=== PATIENT | female | born 1970 | race Caucasian/White ===

== ENCOUNTER → 2020-02-11 | Outpatient (CLI) | payer OTHER ==
[~2020-02-11] MED LIST: AMOX500 PO; ERGO50000 PO; ESZO3 PO; HYDACE5 PO; MULVITA PO; NEBI5 PO; OMEP20ER PO; OMEP40CA12 PO; OXYACE5T PO; PROG100 PO
[2020-02-11 18:01] LABS: BASOPHILS ABSOLUTE AUTO 0.09 K/mm3 (0.00-0.23); BASOPHILS PERCENT AUTO 2 % (0-2); EOSINOPHILS ABSOLUTE AUTO 0.35 K/mm3 (0.00-0.68); EOSINOPHILS PERCENT AUTO 6 % (0-6); Hematocrit 41.1 % (33.0-51.0); Hemoglobin 14.1 g/dL (11.5-16.0); IMMATURE GRAN ABSOLUTE AUTO 0.01 K/mm3 (0.00-0.10); IMMATURE GRAN PERCENT AUTO 0 % (0-1); LYMPHOCYTES ABSOLUTE AUTO 2.52 K/mm3 (0.84-5.20); LYMPHOCYTES PERCENT AUTO 42 % (21-46); MONOCYTES ABSOLUTE AUTO 0.48 K/mm3 (0.16-1.47); MONOCYTES PERCENT AUTO 8 % (4-13); Mean Corpuscular HGB 30.1 pg (26.0-34.0); Mean Corpuscular HGB Conc 34.3 g/dL (31.5-36.5); Mean Corpuscular Volume 88 fL (80-100); Mean Platelet Volume 10.8 fL (9.1-12.4); NEUTROPHILS PERCENT AUTO 43 % (41-73); Platelet Count 326 K/mm3 (150-400); RDW Coefficient Variation 12.8 % (11.7-14.2); RDW Standard Deviation 40.5 fL (35.1-46.3); Red Blood Cell Count 4.69 M/mm3 (3.80-5.20); White Blood Cell Count 6.05 K/mm3 (4.00-11.30)
== END | disposition home or self-care (01) ==
LOC: LAB EV 17:56 → LAB SHORT 17:56
PROVIDERS: Physician Assistant Surgical
DX: R53.83 Other fatigue (principal)
CPT/HCPCS: 85025

== ENCOUNTER 2020-08-22 08:30 | Day surgery (SDC) | payer OTHER ==
[~2020-08-22] VITALS: Ht 172.7 cm; Wt 66.1 kg
[~2020-08-22 08:30] MED LIST changes: +ASPI325 PO; +BENADRYL25 MG PO
--- NOTE | 2020-08-22 09:22 | NUR ---
08/22/20 0922 RAYMOND GILBERT ONE ATTEMPT BY ROSIBEL UNSUCCESSFUL SECOND ATTEMPT SUCCESSFUL BY RN IN RIGHT FORARM PT TOW
--- NOTE | 2020-08-22 11:43 | NUR ---
08/22/20 1143 Kathrin Barahona WHEN ASKED PT. IF SHE HAD ANY PAIN, PT. VERBALIZED HER IV SITE. PT. STATES "I HATE THEM." SMALL AMT. SWELLING OBSERVED WITH SMALL AMT. OF REDNESS. NO INFILTRATION OBSERVED. PT. INSTRUCTED SHE COULD USE A WARM PACK AT HOME IF BOTHERSOME. PT. ALSO REFUSED ANYTHING TO DRINK AFTER OFFERRING MULTIPLE TIMES. MOM AT HER BEDSIDE WHEN DR. VALLECILLO & RN EXPLAINING DISCHARGE INSTRUCTIONS.
== END 2020-08-22 11:30 | disposition home or self-care (01) ==
LOC: ORSCSDS 08:30
PROVIDERS: Student in an Organized Health Care Education/Training Program
PROC: 0DBL8ZX Excision of Transverse Colon, Via Natural or Artificial Opening Endoscopic, Diagnostic (ICD-10-PCS; principal; 2020-08-22 09:45)
PROC: 0DBN8ZX Excision of Sigmoid Colon, Via Natural or Artificial Opening Endoscopic, Diagnostic (ICD-10-PCS; principal; 2020-08-22 09:45)
PROC: 0DB68ZX Excision of Stomach, Via Natural or Artificial Opening Endoscopic, Diagnostic (ICD-10-PCS; principal; 2020-08-22 09:45)
PROC: 0DBK8ZX Excision of Ascending Colon, Via Natural or Artificial Opening Endoscopic, Diagnostic (ICD-10-PCS; principal; 2020-08-22 09:45)
PROC: 0DB58ZX Excision of Esophagus, Via Natural or Artificial Opening Endoscopic, Diagnostic (ICD-10-PCS; principal; 2020-08-22 09:45)
DX: K92.1 Melena (principal); R13.10 Dysphagia, unspecified; K21.9 Gastro-esophageal reflux disease without esophagitis; K29.70 Gastritis, unspecified, without bleeding; K22.8 Other specified diseases of esophagus; K31.7 Polyp of stomach and duodenum; K52.9 Noninfective gastroenteritis and colitis, unspecified; D12.2 Benign neoplasm of ascending colon; D12.3 Benign neoplasm of transverse colon; K63.5 Polyp of colon; K64.8 Other hemorrhoids; K64.4 Residual hemorrhoidal skin tags; J45.909 Unspecified asthma, uncomplicated; Z79.82 Long term (current) use of aspirin
CPT/HCPCS: 88305; 88342; J2704; J7120

== ENCOUNTER → 2020-09-22 | Outpatient (CLI) | payer OTHER | END | disposition home or self-care (01) | LOC: LAB 13:49 → LAB SHORT 13:49 | DX: D23.9 Other benign neoplasm of skin, unspecified (principal) | CPT/HCPCS: 88364 ==

== ENCOUNTER 2021-02-15 09:06 | Day surgery (SDC) | payer OTHER ==
[~2021-02-15] VITALS: Ht 172.7 cm; Wt 68.3 kg
[~2021-02-15 09:06] MED LIST changes: +FAMO20 PO
== END 2021-02-15 10:50 | disposition home or self-care (01) ==
LOC: ORSCSDS 09:06
PROVIDERS: Student in an Organized Health Care Education/Training Program
PROC: 0DB48ZX Excision of Esophagogastric Junction, Via Natural or Artificial Opening Endoscopic, Diagnostic (ICD-10-PCS; principal; 2021-02-15 10:15)
DX: K21.9 Gastro-esophageal reflux disease without esophagitis (principal); K29.70 Gastritis, unspecified, without bleeding; J45.909 Unspecified asthma, uncomplicated; Z79.899 Other long term (current) drug therapy
CPT/HCPCS: 88305; J2250; J2704; J7120

== ENCOUNTER → 2023-09-30 | Outpatient (CLI) | payer OTHER ==
[2023-10-03 15:08] LABS: HPV 16 Negative (Negative); HPV 18 Negative (Negative); HPV OTHER HR TYPES Negative (Negative)
== END ==
LOC: LAB 18:23 → LAB SHORT 18:23
PROVIDERS: Physician Assistant
DX: Z01.419 Encounter for gynecological examination (general) (routine) without abnormal findings (principal)
CPT/HCPCS: 87624; G0145